=== PATIENT | female | born 1995 | race Caucasian/White ===

== ENCOUNTER 2017-05-03 08:51 | Emergency (ER) | payer BC ==
[~2017-05-03] VITALS: Ht 170.2 cm; Wt 59.1 kg
[2017-05-03 08:55] VITALS: BP 151/89; PULSE 124; TEMP 99.2
[2017-05-03] MEDS ORDERED: SARAFEM20 M1 PO (08:58)
[2017-05-03] MEDS ORDERED: PORTIA-28 30 MC1 TAB PO (08:58)
[2017-05-03] MEDS ORDERED: AMOXICILLIN 50500 MG PO (09:51)
== END 2017-05-03 09:55 | disposition home or self-care (01) ==
LOC: COL.ER 08:51
DX: J02.0 Streptococcal pharyngitis (principal)

== ENCOUNTER 2017-05-09 13:40 | Emergency (ER) | payer BC ==
[~2017-05-09] VITALS: Ht 170.2 cm; Wt 59.1 kg
[~2017-05-09 13:40] MED LIST: AMOXICILLIN 50500 MG PO; PORTIA-28 30 MC1 TAB PO; SARAFEM20 M1 PO
[2017-05-09 13:43] VITALS: BP 136/88; PULSE 128; TEMP 97.3
[2017-05-09] MEDS ORDERED: ZOVIRAX400 MG PO (15:08)
[2017-05-09 16:35] LABS: PH 5 (5-8); SQUAMOUS EPITHELIAL 0-2 /hpf; URINE APPEARANCE Clear; URINE BACTERIA None Seen /hpf; URINE BILIRUBIN Negative (NEGATIVE); URINE BLOOD Negative (NEGATIVE); URINE COLOR Yellow; URINE GLUCOSE Negative (NEGATIVE); URINE KETONE 2+ (NEGATIVE); URINE UROBILINOGEN Negative (NEGATIVE)
[2017-05-09] MEDS ORDERED: MACROBID 1100 MG/CAP PO (16:37)
[2017-05-10 03:33] LABS: CHLAMYDIA/TRACH by PCR Female NOT DETECTED; NEISSERIA GON by PCR Female NOT DETECTED
== END 2017-05-09 16:43 | disposition home or self-care (01) ==
LOC: COL.ER 13:40
PROVIDERS: Physician Assistant
DX: N39.0 Urinary tract infection, site not specified (principal); N89.8 Other specified noninflammatory disorders of vagina; F17.210 Nicotine dependence, cigarettes, uncomplicated; Z32.02 Encounter for pregnancy test, result negative; Z86.19 Personal history of other infectious and parasitic diseases

== ENCOUNTER → 2018-01-20 | Outpatient (REF) ==
[~2018-01-20] MED LIST changes: +MACROBID 1100 MG/CAP PO; +ZOVIRAX400 MG PO
[2018-01-20 16:52] LABS: THYROID STIMULATING HORMONE 1.54 uIU/mL (0.465-4.680)
== END ==
LOC: ZLAB.WCH 16:03
PROVIDERS: Nurse Practitioner Family
DX: Z01.89 Encounter for other specified special examinations (principal)

== ENCOUNTER 2018-03-04 04:04 | Emergency (ER) | payer OTHER ==
[~2018-03-04] VITALS: Ht 167.6 cm; Wt 58.2 kg
[2018-03-04 04:10] VITALS: TEMP 98.4
[2018-03-04 05:04] LABS: BASO % 0.1 % (0.0-2.0); EOS % 0.1 % (0-4.0); GRAN # 12.2 (1.4-6.5); GRAN % 88.1 % (42.2-75.2); HEMOGLOBIN 12.2 g/dl (12.5-16.0); LYMPH % 7.3 % (20.0-51.0); MEAN CELL VOLUME 87 fl (80.0-100.0); MEAN CORPUSCULAR HEMOGLOBIN 31 pg (27.0-31.0); MEAN CORPUSCULAR HGB CONC 36 g/dl (33.0-37.0); MEAN PLATELET VOLUME 10.5 fl (7.4-10.4); MONO # 0.6 (0.1-0.6); PLATELET COUNT 197 K/mm3 (130-400); RED BLOOD COUNT 3.91 M/mm3 (4.10-5.30); REDCELL DISTRIBUTION WIDTH-CV 11.8 % (11.5-14.5)
[2018-03-04 05:18] LABS: ALBUMIN 4.3 gm/dL (3.5-5.0); BILIRUBIN,TOTAL 0.7 mg/dL (0.0-1.0); CALCIUM 9.4 mg/dL (8.4-10.2); CREATININE, serum 0.4 mg/dL (0.52-1.25); POTASSIUM 3.6 mmol/L (3.4-5.0); TOTAL PROTEIN 7.3 gm/dL (6.4-8.2)
[2018-03-04 05:20] LABS: C-REACTIVE PROTEIN 0.5 mg/dL (0.0-0.9)
[2018-03-04 05:56] LABS: COLLECTION METHOD CLEAN CATCH
[2018-03-04 06:02] LABS: MUCOUS Present /lpf; PH 8 (5-8); SQUAMOUS EPITHELIAL 0-2 /hpf; URINE APPEARANCE Clear; URINE BACTERIA None Seen /hpf; URINE BILIRUBIN Negative (NEGATIVE); URINE BLOOD Negative (NEGATIVE); URINE COLOR Yellow; URINE GLUCOSE Negative (NEGATIVE); URINE KETONE Negative (NEGATIVE); URINE LEUKOCYTE ESTERASE Negative (NEGATIVE); URINE NITRATE Negative (NEGATIVE); URINE PROTEIN(semi-quant) Negative (NEGATIVE); URINE RBC None Seen /hpf; URINE UROBILINOGEN Negative (NEGATIVE)
[2018-03-04] MEDS ORDERED: UNISOM25 MG PO (06:36)
[2018-03-04] MEDS ORDERED: MIRALAX 255 GM255 GM PO (06:36)
[2018-03-04] MEDS ORDERED: VITAMIN B-625 MG PO (06:36)
[2018-03-04 06:47] VITALS: BP 115/70; PULSE 95
== END 2018-03-04 06:49 | disposition home or self-care (01) ==
LOC: COL.ER 04:04
PROVIDERS: Emergency Medicine
DX: O21.9 Vomiting of pregnancy, unspecified (principal); O99.89 Other specified diseases and conditions complicating pregnancy, childbirth and the puerperium; K59.00 Constipation, unspecified; Z3A.01 Less than 8 weeks gestation of pregnancy
CPT/HCPCS: J7030

== ENCOUNTER 2018-06-05 14:02 | Emergency (ER) | payer OTHER ==
[~2018-06-05] VITALS: Ht 167.6 cm; Wt 59.5 kg
[~2018-06-05 14:02] MED LIST changes: +MIRALAX 255 GM255 GM PO; +UNISOM25 MG PO; +VITAMIN B-625 MG PO
[2018-06-05 14:09] VITALS: TEMP 98.7
[2018-06-05 15:47] VITALS: BP 116/76; PULSE 81
[2018-06-05] MEDS ORDERED: CRANBERRY500 M3 PO (16:12)
[2018-06-05] MEDS ORDERED: CONCEPT DHA1 CAP PO (16:12)
[2018-06-05] MEDS ORDERED: PROBIOTIC ACID1 EAC3 PO (16:13)
== END 2018-06-05 15:49 | disposition home or self-care (01) ==
LOC: COL.ER 14:02
DX: O26.892 Other specified pregnancy related conditions, second trimester (principal); R30.0 Dysuria; O47.02 False labor before 37 completed weeks of gestation, second trimester; Z3A.22 22 weeks gestation of pregnancy

== ENCOUNTER 2018-06-05 15:57 | Outpatient (CLI) | payer OTHER ==
[~2018-06-05] VITALS: Ht 167.6 cm; Wt 59.5 kg
[2018-06-05 15:59] VITALS: BP 126/62; PULSE 87
[2018-06-05] MEDS ORDERED: CRANBERRY500 M3 PO (16:12)
[2018-06-05] MEDS ORDERED: CONCEPT DHA1 CAP PO (16:12)
[2018-06-05] MEDS ORDERED: PROBIOTIC ACID1 EAC3 PO (16:13)
[2018-06-05 16:31] LABS: COLLECTION METHOD CLEAN CATCH
[2018-06-05 16:39] LABS: PH 7 (5-8); SQUAMOUS EPITHELIAL None Seen /hpf; URINE APPEARANCE Clear; URINE BACTERIA None Seen /hpf; URINE BILIRUBIN Negative (NEGATIVE); URINE BLOOD Negative (NEGATIVE); URINE COLOR Colorless; URINE GLUCOSE Negative (NEGATIVE); URINE KETONE Negative (NEGATIVE); URINE LEUKOCYTE ESTERASE Negative (NEGATIVE); URINE NITRATE Negative (NEGATIVE); URINE PROTEIN(semi-quant) Negative (NEGATIVE); URINE RBC None Seen /hpf; URINE UROBILINOGEN Negative (NEGATIVE)
== END 2018-06-05 17:15 | disposition home or self-care (01) ==
LOC: LDRO 15:57
PROVIDERS: Obstetrics & Gynecology
DX: O42.912 Preterm premature rupture of membranes, unspecified as to length of time between rupture and onset of labor, second trimester (principal); O26.892 Other specified pregnancy related conditions, second trimester; R25.2 Cramp and spasm; Z3A.22 22 weeks gestation of pregnancy

== ENCOUNTER 2018-08-17 19:23 | Emergency (ER) | payer MEDICAID ==
[~2018-08-17] VITALS: Ht 167.6 cm; Wt 72.7 kg
[~2018-08-17 19:23] MED LIST changes: +CONCEPT DHA1 CAP PO; +CRANBERRY500 M3 PO; +PROBIOTIC ACID1 EAC3 PO
[2018-08-17 19:28] VITALS: BP 135/77; PULSE 92; TEMP 97.4
== END 2018-08-17 20:44 | disposition home or self-care (01) ==
LOC: COL.ER 19:23
DX: H61.21 Impacted cerumen, right ear (principal); Z87.891 Personal history of nicotine dependence

== ENCOUNTER 2018-09-21 16:13 | Outpatient (CLI) | payer OTHER, MEDICAID ==
[~2018-09-21] VITALS: Ht 167.6 cm; Wt 78.2 kg
--- NOTE | 2018-09-21 16:10 | NUR ---
Patient ambulatory to LR6, FHR/TOCO monitors placed and explained. Patient having complaints of baby not moving as much as usual "not doing her normal routine, but still can feel her moving and just felt crampy with back pain today, I have an appointment with Dr. Manzano tomorrow" Plan of care discussed. Will continue to monitor.
[2018-09-21] MEDS ORDERED: PRENATAL MVI (16:19)
[2018-09-21] MEDS ORDERED: UNISOM25 MG PO (16:19)
[2018-09-21] MEDS ORDERED: LEXAPRO 10MG10 MG PO (16:19)
[2018-09-21 17:00] VITALS: BP 134/82; PULSE 94; TEMP 97.9
--- NOTE | 2018-09-21 17:05 | NUR ---
Patient given discharge orders and patient verbalizes understading and signs papers. Questions answered. 1710: Ambulatory off unit with grandmother.
== END 2018-09-21 17:10 | disposition home or self-care (01) ==
LOC: LDRO 16:13
DX: O36.8130 Decreased fetal movements, third trimester, not applicable or unspecified (principal); Z3A.37 37 weeks gestation of pregnancy

== ENCOUNTER → 2018-12-07 | Outpatient (REF) ==
[~2018-12-07] MED LIST changes: +BENADRYL25 M2 PO; +CORDARONE200 MG/TAB PO; +LEXAPRO 10MG10 MG PO; +MOTRIN 800800 MG/TAB PO; +PERCOCET 325 MG1 TA2 PO; +PRENATAL MVI; +TUMS ULTRA ST1000 MG PO; +VALTREX1 GM PO
[2018-12-07 11:00] LABS: THYROID STIMULATING HORMONE 3.13 uIU/mL (0.465-4.680)
== END ==
LOC: ZLAB.WCH 09:52
PROVIDERS: Physician Assistant
DX: Z01.89 Encounter for other specified special examinations (principal)

== ENCOUNTER → 2019-05-17 | Outpatient (CLI) | payer MEDICAID | LOC: ZLAB.WCHCL 17:57 | DX: Z01.89 Encounter for other specified special examinations (principal) ==

== ENCOUNTER → 2019-06-12 | Outpatient (CLI) | payer BC, MEDICAID | LOC: COL.RAD 13:17 | DX: E05.90 Thyrotoxicosis, unspecified without thyrotoxic crisis or storm (principal) | CPT/HCPCS: A9516 ==

== ENCOUNTER → 2020-10-10 | Outpatient (CLI) | payer BC, MEDICAID | LOC: ZCOL.LAB 14:28 | DX: R94.31 Abnormal electrocardiogram [ECG] [EKG] (principal) ==

== ENCOUNTER 2020-12-02 17:10 | Observation (INO) | payer BC, MEDICAID ==
[~2020-12-02] VITALS: Ht 167.6 cm; Wt 63.4 kg
[~2020-12-02 17:10] MED LIST changes: -PRENATAL MVI; +PRENATAL MVI PO
[2020-12-02 17:17] VITALS: BP 102/46; PULSE 94; TEMP 98.8
[2020-12-02] MEDS ORDERED: TYLENOL 325MG325 MG PO (17:21)
[2020-12-02] MEDS ORDERED: TOPROL XL 25MG25 MG PO (17:23)
--- NOTE | 2020-12-02 19:05 | NUR ---
Patient admitted to room 324 from [facility]. Report from [place]. Patient alert & oriented. She tolerated general diet. denies nausea. K+ per orders. [place] rounded. Vss on Tele. I spoke to Dr. Malcolm Aware of consult. I talked to Ob charge nurse Terese, made her aware that heart tones need to be done. I let patient know ultrasound to be completed in am. Mirela with Dr. Mitchell called I let her know patient room, no new orders at this time. all admission paperwork completed. med list reviewed. Bedside report to Janet BARRON.
[2020-12-02 19:42] VITALS: BP 112/56; PULSE 84; TEMP 98
--- NOTE | 2020-12-02 20:00 | NUR ---
Initial shift assessment done- VSS, Tele on, SR rate 90,, Did take a quick shower/ Tele back on at this time,, denies pain, did give a sandwich box lunch for a snack tonight-- no requests, OB will be here soon for FHT, also a BMP will be drawn at 2200 and do potassium protocol from that draw-
[2020-12-02 21:59] LABS: CALCIUM 8.8 mg/dL (8.4-10.2); CREATININE, serum 0.45 (0.52-1.25); POTASSIUM 3.7 mmol/L (3.4-5.0)
[2020-12-03 00:22] VITALS: BP 95/50; PULSE 72; TEMP 98.2
[2020-12-03 03:24] VITALS: BP 103/44; PULSE 72; TEMP 98
--- NOTE | 2020-12-03 05:51 | NUR ---
States did not sleep very well last night- VSS, Tele on, SR 70-80,s all night. Will get another potassium level drawn this morning- on potassium protocol. OB nurse did do FHT at around 2100 last evening,rate 155/min--
[2020-12-03 07:06] LABS: BASO % 0.2 % (0.0-2.0); EOS % 0.5 % (0-4.0); GRAN # 5.1 (1.4-6.5); GRAN % 62.5 % (42.2-75.2); HEMOGLOBIN 10.8 g/dl (12.5-16.0); LYMPH # 2.5 (1.2-3.4); LYMPH % 30.2 % (20.0-51.0); MEAN CELL VOLUME 91 fl (80.0-100.0); MEAN CORPUSCULAR HEMOGLOBIN 32 pg (27.0-31.0); MEAN CORPUSCULAR HGB CONC 35 g/dl (33.0-37.0); MONO # 0.5 (0.1-0.6); MONO % 6.1 % (1.7-9.3); PLATELET COUNT 179 K/mm3 (130-400); RED BLOOD COUNT 3.41 M/mm3 (4.10-5.30); REDCELL DISTRIBUTION WIDTH-CV 13.3 % (11.5-14.5)
[2020-12-03 07:22] LABS: CALCIUM 8.9 mg/dL (8.4-10.2); CREATININE, serum 0.42 (0.52-1.25); POTASSIUM 3.8 mmol/L (3.4-5.0)
[2020-12-03 07:29] VITALS: BP 106/51; PULSE 68; TEMP 97.9
--- NOTE | 2020-12-03 09:12 | NUR ---
QUAN met with the patient to discuss discharge plan. The patient lives in [place] with her grandmother, Zaria (ph#[phone]), and her [id number] daughter. She is also currently 13 weeks . She states that her grandmother is watching her daughter while she is here. She reports independence with ADLs and does not have any DME. The patient's primary care provider is Oriana Bermudez PA-C and she receives her medications from [facility]. She reports no difficulties obtaining her meds. The patient does not have a DPOA-HC, but she was interested in obtaining a form. QUAN provided. She states that she is not . Her mother, Sheryl (ph#[phone]), is her next of kin. Sheryl lives in [place]. The patient plans to return home with her grandmother and daughter upon discharge. No additional needs at this time.
--- NOTE | 2020-12-03 09:15 | NUR ---
Initial visit; Patient thanked Claims Counsel for looking in on her and stated she is feeling better. Estefania thanked Claims Counsel for wishing her God's blessings and keeping her in Claims Counsel's prayers.
--- NOTE | 2020-12-03 09:55 | NUR ---
Pt is alert and oriented. Heart tones present and normal, no murmur noted. Lung sounds are clear through all lobes. Pt states she is 13 weeks and experienced similar symptoms with her first but has a long history of SVT. NS flush was administered and peripheral line was intact with no issues.
--- NOTE | 2020-12-03 11:03 | NUR ---
Patient alert and oriented, answers questions appropriately. See assessment. Abdomen soft, non tender, non distended. Bowel sounds active x4 quads. +Flatus. No n/v. Patient on telemetry. No c/o chest pain or pressure. No other c/o at this time.
[2020-12-03 12:03] VITALS: BP 110/58; PULSE 73; TEMP 98.1
[2020-12-03] MEDS ORDERED: FERROUS GL325 MG/TAB PO (15:07)
[2020-12-03] MEDS ORDERED: TOPROL XL 50MG50 MG PO (15:07)
[2020-12-03 15:50] VITALS: BP 107/50; PULSE 72; TEMP 97.4
--- NOTE | 2020-12-03 17:13 | NUR ---
Discharge instructions reviewed with patient, verbalized understanding. Discharged via wheelchair to auto/home with family at 1700.
== END 2020-12-03 17:00 | disposition home or self-care (01) ==
LOC: SURG 17:10
PROVIDERS: Student in an Organized Health Care Education/Training Program; ADMIT Hospitalist
DX: O26.891 Other specified pregnancy related conditions, first trimester (principal); I47.1 Supraventricular tachycardia; O99.02 Anemia complicating childbirth; O99.344 Other mental disorders complicating childbirth; O99.331 Smoking (tobacco) complicating pregnancy, first trimester; E87.6 Hypokalemia; F17.210 Nicotine dependence, cigarettes, uncomplicated; Z3A.13 13 weeks gestation of pregnancy; Z37.9 Outcome of delivery, unspecified; Z88.1 Allergy status to other antibiotic agents; Z88.8 Allergy status to other drugs, medicaments and biological substances; Z79.899 Other long term (current) drug therapy
CPT/HCPCS: 99223-AI; G0378

== ENCOUNTER 2021-03-04 10:33 | Emergency (ER) | payer BC, MEDICAID ==
[~2021-03-04] VITALS: Ht 167.6 cm; Wt 68.2 kg
[~2021-03-04 10:33] MED LIST changes: +FERROUS GL325 MG/TAB PO; +TOPROL XL 25MG25 MG PO; +TOPROL XL 50MG50 MG PO; +TYLENOL 325MG325 MG PO
[2021-03-04] MEDS ORDERED: TOPROL XL 25MG25 MG PO (11:16)
--- NOTE | 2021-03-04 12:00 | NUR ---
Patient denies OB complaints and reports normal movement. Labor precautions and kick counts reviewed. Will follow up as scheduled.
[2021-03-04 12:07] VITALS: BP 105/65; PULSE 84
== END 2021-03-04 12:10 | disposition home or self-care (01) ==
LOC: COL.ER 10:33
DX: O99.412 Diseases of the circulatory system complicating pregnancy, second trimester (principal); I47.1 Supraventricular tachycardia; Z3A.26 26 weeks gestation of pregnancy
CPT/HCPCS: J0153; J2765

== ENCOUNTER 2021-05-23 17:37 | Outpatient (CLI) | payer BC, MEDICAID ==
[~2021-05-23] VITALS: Ht 167.6 cm; Wt 80.0 kg
--- NOTE | 2021-05-23 17:45 | NUR ---
1745- 38.0, G2L1 here with c/o "gush of fluids" at 1700. Ambulatory to LDR6. Changes into clean gown. Reports normal movement. Denies any regular contractions or vb. 1750- EFM explained and placed. VS obtained. Assessment completed. SVE /-3. Amnitest negative. BOW palpated with SVE. Plan of care reviewed with patient and family who verbalize understanding.
[2021-05-23 18:15] VITALS: BP 129/78; PULSE 82
--- NOTE | 2021-05-23 18:45 | NUR ---
RN to bedside. Pt reports feeling more crampy. SVE unchanged /-3, no more gushes of fluid. Position change. Updated on plan of care.
--- NOTE | 2021-05-23 19:15 | NUR ---
Discharge instructions reviewed with patient, verbalized understanding. Comfortable with plan to discharge home. Ambulated off unit with discharge papers.
== END 2021-05-23 19:15 | disposition home or self-care (01) ==
LOC: LDRO 17:37 → LDR 18:02 → LDRO 19:15
DX: O42.913 Preterm premature rupture of membranes, unspecified as to length of time between rupture and onset of labor, third trimester (principal); Z3A.38 38 weeks gestation of pregnancy
CPT/HCPCS: OP

== ENCOUNTER 2021-05-27 15:00 | Inpatient (IN) | payer BC, MEDICAID ==
[2021-05-27] VITALS (15 sets, daily range): BP systolic 115–137; BP diastolic 57–85; PULSE 63–86; TEMP 97.6–99.4
[~2021-05-27] VITALS: Ht 167.6 cm; Wt 79.5 kg
--- NOTE | 2021-05-27 15:00 | NUR ---
Patient admits to L&D for c/o contractions every 5 to 7 minutes apart, becoming unbearable. Note patient breathing through contractions. SVE on admission /-2 with bulging bag of membranes, bloody show noted. Discusses history of SVT, will put plan in place for precautions. hematology supervisor notified, order obtained for telemetry per ICU recommendation.
[2021-05-27 16:00] LABS: HEMOGLOBIN 12.9 g/dl (12.5-16.0); MEAN CELL VOLUME 95 fl (80.0-100.0); MEAN CORPUSCULAR HEMOGLOBIN 33 pg (27.0-31.0); MEAN CORPUSCULAR HGB CONC 35 g/dl (33.0-37.0); MEAN PLATELET VOLUME 11.7 fl (7.4-10.4); PLATELET COUNT 142 K/mm3 (130-400); RED BLOOD COUNT 3.88 M/mm3 (4.10-5.30); REDCELL DISTRIBUTION WIDTH-CV 13.3 % (11.5-14.5)
[2021-05-27 16:02] LABS: HEMATOCRIT 36.8 % (37.0-47.0)
--- NOTE | 2021-05-27 16:22 | NUR ---
1622-Stacy Gallegos CRNA, here for epidural placement per patient request. 1631-Test dose administered by THEATER USHER. No adverse reactions noted. Tolerates procedure well.
[2021-05-27 16:26] LABS: ALBUMIN 3.4 gm/dL (3.5-5.0); BILIRUBIN,TOTAL 0.9 mg/dL (0.2-1.2); CREATININE, serum 0.61 mg/dL (0.57-1.11); POTASSIUM 3.6 mmol/L (3.5-4.5); TOTAL PROTEIN 6.7 gm/dL (6.2-8.1)
--- NOTE | 2021-05-27 16:40 | NUR ---
[id number]: Taken off of EFM @ this time during epidural procedure, as noted Category I strip prior to, and no oxytocin infusing.
[2021-05-27 16:55] LABS: BAND 1 % (0-10); LYMPHOCYTE 19 % (20.0-51.0); NEUTROPHILS 76 % (42.0-75.2)
--- NOTE | 2021-05-27 17:17 | NUR ---
ROBI while this race and sports book writer updating . Large amount of clear fluid noted. This race and sports book writer request she come to hospital for delivery.
--- NOTE | 2021-05-27 17:26 | NUR ---
1722- here for delivery. This sports book writer and nursery nurse Laina Gutierrez, RN, also present. 1724-First push attempt. 1726-Spontaneous vaginal delivery of head by , followed rapidly by delivery of shoulders. 172-Spontaneous vaginal delivery of female by . Infant to mother's abdomen. Nursery nurse dries and stimulates on maternal abdomen. 1728-Spontaneous vaginal delivery of placenta by . Pit bolus begun immediately following @ 333mU/min. repairs first degree perineal laceration with 3-[address]-1.
[2021-05-28 05:00] VITALS: BP 103/21; PULSE 60; TEMP 97.8
[2021-05-28 07:30] VITALS: BP 127/90; PULSE 58; TEMP 98.1
[2021-05-28 12:00] VITALS: BP 110/66; PULSE 66; TEMP 98.4
--- NOTE | 2021-05-28 14:44 | NUR ---
Initial visit; Parents thanked Hotel Office Manager for offering congratulations and God's blessings for the of their daughter. Hotel Office Manager thanked family for choosing [facility].
[2021-05-28] MEDS ORDERED: MOTRIN 800800 MG/TAB PO (15:25)
[2021-05-28 17:15] VITALS: BP 122/86; PULSE 54; TEMP 98.2
[2021-05-28 20:45] VITALS: BP 126/72; PULSE 62; TEMP 97.8
[2021-05-29 07:04] VITALS: BP 112/73; PULSE 56; TEMP 97.5
--- NOTE | 2021-05-29 11:52 | NUR ---
DISCHARGE TEACHING COMPLETED. EDUCATED ON FOLLOW UP APPOINTMENT AND PRESCRIPTION. QUESTIONS INVITED AND ASNWERED.
== END 2021-05-29 11:55 | disposition home or self-care (01) | DRG 805 ==
LOC: LDR 15:00 → OB 15:00 → LDRO 15:06 → EDSTATUS 15:49 → OB 20:30
PROVIDERS: ADMIT Obstetrics & Gynecology
PROC: 10E0XZZ Delivery of Products of Conception, External Approach (ICD-10-PCS; principal; 2021-05-27)
PROC: 0HQ9XZZ Repair Perineum Skin, External Approach (ICD-10-PCS; 2021-05-27)
PROC: 10907ZC Drainage of Amniotic Fluid, Therapeutic from Products of Conception, Via Natural or Artificial Opening (ICD-10-PCS; 2021-05-27)
DX: O99.344 Other mental disorders complicating childbirth (principal); O99.42 Diseases of the circulatory system complicating childbirth; Z37.0 Single live birth; I47.1 Supraventricular tachycardia; F41.9 Anxiety disorder, unspecified; O70.0 First degree perineal laceration during delivery
CPT/HCPCS: J2405; J2590; J2791; J7120

== ENCOUNTER 2021-06-04 20:31 | Emergency (ER) | payer BC, MEDICAID ==
[~2021-06-04] VITALS: Ht 167.6 cm; Wt 68.2 kg
[2021-06-04 22:04] LABS: BASO % 0.4 % (0.0-2.0); EOS # 0.1 K/mm3 (0.0-0.7); EOS % 0.8 % (0-4.0); GRAN # 6.9 K/mm3 (1.4-6.5); GRAN % 67.8 % (42.2-75.2); HEMATOCRIT 41.3 % (37.0-47.0); HEMOGLOBIN 14.8 g/dl (12.5-16.0); LYMPH # 2.5 K/mm3 (1.2-3.4); LYMPH % 24.2 % (20.0-51.0); MEAN CELL VOLUME 93 fl (80.0-100.0); MEAN CORPUSCULAR HEMOGLOBIN 33 pg (27.0-31.0); MEAN CORPUSCULAR HGB CONC 36 g/dl (33.0-37.0); MEAN PLATELET VOLUME 9.7 fl (7.4-10.4); MONO # 0.6 K/mm3 (0.1-0.6); MONO % 6.3 % (1.7-9.3); PLATELET COUNT 275 K/mm3 (130-400); RED BLOOD COUNT 4.44 M/mm3 (4.10-5.30); REDCELL DISTRIBUTION WIDTH-CV 12.2 % (11.5-14.5)
[2021-06-04 22:23] LABS: COLLECTION METHOD CLEAN CATCH
[2021-06-04 22:29] LABS: PH 7 (5-8); SQUAMOUS EPITHELIAL 0-2 /hpf; URINE APPEARANCE Clear; URINE BACTERIA None Seen /hpf; URINE BILIRUBIN Negative (NEGATIVE); URINE BLOOD 2+ (NEGATIVE); URINE COLOR Straw; URINE GLUCOSE Negative (NEGATIVE); URINE KETONE Negative (NEGATIVE); URINE LEUKOCYTE ESTERASE Negative (NEGATIVE); URINE NITRATE Negative (NEGATIVE); URINE PROTEIN(semi-quant) Negative (NEGATIVE); URINE RBC 0-2 /hpf; URINE UROBILINOGEN Negative (NEGATIVE)
[2021-06-04 23:07] VITALS: BP 132/91; PULSE 60; TEMP 98.1
== END 2021-06-04 23:09 | disposition home or self-care (01) ==
LOC: COL.ER 20:31
PROVIDERS: Emergency Medicine Emergency Medical Services
DX: O72.1 Other immediate postpartum hemorrhage (principal); I47.1 Supraventricular tachycardia